=== PATIENT | female | born 1970 | race Caucasian/White ===

== ENCOUNTER 2018-08-08 10:21 | Inpatient (IN) | payer MEDICAID ==
[~2018-08-08] VITALS: Ht 172.7 cm; Wt 75.3 kg
--- NOTE | ~2018-08-08 | PROC ---
[address] [address] PROCEDURE REPORT Name: GALILEO HAMMOND Room: [address] IN ..#: [id number] Admission: 08/08/18 Attend Phys: Cristina Desai MD Discharge: 08/11/18 Date of : 66 Report #: [id number] THIS REPORT FOR: //name// For GI report, please see the Provation report in Perceptive 7 content. By: 1003Medical Records Staff RADHA /KRISTA
[~2018-08-08 10:21] MED LIST: DOXYCYCLINE 10100 MG PO; FLEXERIL PO; IBUPROFEN 600600 M1 PO; IRON325 PO; LEXAPRO20 MG; LEXAPRO20 MG PO; MAGOX 400400 MG PO; MECLIZINE HCL25 M1 PO; NOHOMEMEDICATIONS; OMEPRAZOLE40 MG PO; PERCOCET 5-3251 EACH PO; PERMETHRIN118 ML TP; PREDNISONE 10 M10 M1 PO; PREDNISONE 20 M20 M1 PO; PROAIR HFA8.5 GM INH; ROBITUSSIN100 MG/53 PO; TESSALON PERLE100 MG PO; VENTOLIN HFA 1818 GM INH; VICODIN 5-5001 EACH PO; VIVITROL380 MG IM; ZANTAC 150MG T150 MG PO; ZPAK PO
[2018-08-08 10:30] VITALS: BP 117/92
[2018-08-08 11:08] LABS: ABSOLUTE EOSINOPHILS 0.1 thou/uL (0.0-0.7); ABSOLUTE LYMPHOCYTES 2.9 thou/uL (0.8-5.3); ABSOLUTE MONOCYTES 0.7 thou/uL (0.0-1.2); BASOPHILS 0.7 %; EOSINOPHILS 0.9 %; HEMATOCRIT 46.5 % (37.0-47.0); HEMOGLOBIN 16.1 gm/dL (12.0-15.0); LYMPHOCYTES 43.2 %; MCH 31.5 pg (26.0-34.0); MCHC 34.7 g/dL (28.0-37.0); MCV 90.8 fL (80.0-100.0); MONOCYTES 10.4 %; NUCLEATED RBCS 0 /100WBC; PLATELET COUNT* 336 thou/uL (150-400); POLYS 44.8 %; RBC 5.12 mil/uL (4.20-5.00); WBC 6.7 thou/uL (4.0-11.0)
[2018-08-08 11:15] LABS: CALCIUM 8.8 mg/dL (8.5-10.1); CREATININE 0.7 mg/dL (0.6-1.3)
[2018-08-08 11:17] LABS: POTASSIUM 2.5 mmol/L (3.5-5.1)
[2018-08-08 11:25] LABS: ALBUMIN 3.3 g/dL (3.4-5.0); TOTAL BILIRUBIN 0.4 mg/dL (<0.1-1.0); TOTAL PROTEIN 7.2 g/dL (6.4-8.2)
[2018-08-08 13:16] LABS: URINE BILIRUBIN NEGATIVE (Negative); URINE BLOOD NEGATIVE (Negative); URINE CLARITY CLEAR; URINE COLOR YELLOW; URINE GLUCOSE-RANDOM NEGATIVE (Negative); URINE KETONES NEGATIVE (Negative); URINE LEUKOCYTES-REFLEX NEGATIVE (Negative); URINE NITRITE-REFLEX NEGATIVE (Negative); URINE PROTEIN NEGATIVE (Negative); URINE UROBILINOGEN 0.2 E.U./dl (0.2-1.0)
[2018-08-08 14:12] VITALS: BP 135/115
[2018-08-08 14:42] VITALS: BP 124/77
[2018-08-08] MEDS ORDERED: SEROQUEL200 MG PO (15:01)
[2018-08-08] MEDS ORDERED: TRAZODONE HCL100 MG PO (15:02)
[2018-08-08] MEDS ORDERED: SEROQUEL 50 MG50 MG PO (15:02)
[2018-08-08] MEDS ORDERED: LEXAPRO 10 MG T10 M2 PO (15:03)
[2018-08-08 15:34] LABS: MAGNESIUM 2.4 mg/dL (1.8-2.4)
--- NOTE | 2018-08-08 15:34 | NUR ---
PATIENT ADMITTED TO 219. NO FAMILY PRESENT AT THIS TIME. PATIENT HAS PAIN, MEDICATION GIVEN. PAIN PERSISTS EVEN AFTER MEDICATION. ALL ADMISSION QUESTIONS ANSWERED, ASSESMENT CHARTED. EDUCATION GIVEN.
[2018-08-08 15:35] LABS: POTASSIUM 3.5 mmol/L (3.5-5.1)
--- NOTE | 2018-08-08 18:08 | NUR ---
PATIENT PROGRESSING WELL TOWARDS GOALS. PAIN HAS COME DOWN FROM 8 TO A 6/10 WITH MUTIPLE SCHEDULED AND PRN MEDICATION. ELECTROLYTES HAVE BEEN REPLACED AND ARE WITHIN NORMAL LIMITS. ON ELECTROLYTE PROTOCOL. INTERNATIONAL TRADE SPECIALIST IN PLACE. WILL CONTINUE TO MONITOR.
[2018-08-08 20:29] VITALS: BP 109/72
[2018-08-09] VITALS: BP 94/63
[2018-08-09 04:00] VITALS: BP 109/68
--- NOTE | 2018-08-09 05:12 | NUR ---
PT IS ABLE TO COMMUNICATE HER NEEDS TO STAFF EFFECTIVELY. CURRENT PAIN MEDICATION REGIMEN HAS BEEN ADEQUATE FOR CONTROLLING HER PAIN UP TO THIS TIME. PT STILL HAVING INTERMITTENT BILATERAL CALF CRAMPS; MEDICATION HAS BEEN ADEQUATE TO KEEP HER COMFORTABLE MOST OF THE TIME.
[2018-08-09 05:25] LABS: HEMATOCRIT 40.2 % (37.0-47.0); MCH 32.2 pg (26.0-34.0); MCHC 34.7 g/dL (28.0-37.0); MCV 92.6 fL (80.0-100.0); RBC 4.34 mil/uL (4.20-5.00); WBC 5.6 thou/uL (4.0-11.0)
[2018-08-09 06:00] LABS: CALCIUM 8.1 mg/dL (8.5-10.1); CREATININE 0.7 mg/dL (0.6-1.3); MAGNESIUM 2.1 mg/dL (1.8-2.4)
[2018-08-09 06:04] LABS: POTASSIUM 2.8 mmol/L (3.5-5.1)
[2018-08-09 08:04] VITALS: BP 83/56
--- NOTE | 2018-08-09 09:38 | NUR ---
ASSUMED CARE OF PT THIS AM AROUND 0715- MOBILE THERAPIST IN PLACE ORDERED, TRACING SR- UPON ASSESSMENT PT NOTED TO BE RESTING IN BED, EYES CLOSED- PT ARROUSABLE, BUT GROGGY- PT A&O X4- CONTINENT OF BOWEL AND BLADDER- SBA WITH TRANSFERS THIS AM FOR SAFETY R/T LOW BP OF 83/56-BP AT 0943 NOTED TO IMPROVE TO 127/70- LCTA, RESP EVEN AND UN-LABORED- VSS, O2 SAT 92% ON RA- ABDOMEN SOFT/ROUND/NON-TENDER, BS X4 QUADS- LAST BM REPORTED 08/07/18- IV NOTED TO RIGHT HAND INTACT AND SL- NICOTEIN PATCH REPLACED THIS AM TO LEFT UPPER SHOULDER- LIDOCAINE PATCH PLACED TO KATE FEET-K+ THIS AM NOTED TO BE 2.8, AND HAS CURRENTLY LUCIO REPLACED PER PROTOCOL X2 WITH 3RD DOSE TO FOLLOW- CALL LIGHT AND PERSONAL BELONGINGS WITH IN REACH-HOURLY ROUNDS IN PLACE R/T SAFETY/NEEDS- ALL NEEDS MET AT THIS TIME-WCTM
[2018-08-09 11:47] VITALS: BP 88/51
--- NOTE | 2018-08-09 13:38 | NUR ---
Nutrition: Consult received for "difficulty eating." Per RN, pt has had no N/V. She has had abd pain INSIDE SALES ACCOUNT MANAGER. K+ 2.8, alb 3.3. Pt was sound asleep at 13:[address] noticed her lunch tray was untouched. Per [facility], pt used to weigh 180#. Today's wt is recorded as 159#. Unable to obtain wt hx, as pt is sleeping. RD to follow up on wt hx, po intake 08/11/18.
--- NOTE | 2018-08-09 14:03 | NUR ---
Pt is A&O. Resides at home with her boyfriend and son. Independent with ADLs. No DME. No hx of HH. Pt reports hx of skilled in [place]. Pt requested assistance with disability, CM provided Pt with info from [employer] site and informed that she will need to either apply online, in person or via phone. Following.
[2018-08-09 15:44] VITALS: BP 81/44
--- NOTE | 2018-08-09 16:23 | NUR ---
PT FAUSTINO RESTING IN BED, FAMILY AT SIDE VISITING- CORROSION ENGINEER IN PLACE ORDERED, TRACING SR- IV TO LEFT HAND INTACT, IVF STARTED THIS SHIFT AND INFUSING PRESCIBED- BP NOTED TO BE LOW AGAIN AT 1130 OF 88/51, PT CONTINUES TO BE GROGGY AND SLEEPING MOST SHIFT- PT STATES THAT SHE HAS NOT SLEPT WELL FOR LAST FEW DAYS- BP IMPROVED AT 1435 AND NOTED TO BE 115/67, PRN HYDROCODONE GIVEN PER PT REQUEST AT 1438- BP THEN AT 1600 REPORTED TO BE LOW AT 81/44- AWARE OF BP'S- ORDERS NOTED FOR SCHEDULED SERAQUIL TO BE DECREASED THIS SHIFT PER - K+ REPLACED THIS SHIFT PERPROTOCOL AND IVF PRESCIBED- REDRAW AT 1545 NOTED TO BE 4.7- GI CONSULT INITIATED AND PT SEEN THIS SHIFT WITH ORDERS NOTED FOR CLEAR LIQUID DIET, WITH NPO AT MIDNIGHT AND PLANS FOR EGD AND COLONOSCOPY IN AM WITH GET TO FOLLOW- HUBER STARTED THIS SHIFT SCHEDULED AT 1541- PT MAKES NEEDS KNOWN- HOURLY ROUNDS IN PLACE R/T SAFETY/NEEDS- ALL NEEDS MET AT THIS TIME-WCTM
[2018-08-09 19:25] VITALS: BP 108/63
[2018-08-10] VITALS (7 sets, daily range): BP systolic 98–125; BP diastolic 57–72
--- NOTE | 2018-08-10 04:08 | NUR ---
PT AAOX4, RESP REG AND UNALBORED SKIN W/D NO ACUTE DISTRESS NOTED. PT STATED SHE HAS CONSTANT PAIN IN HER LEGS FROM THIGHS DOWN MOST OF THE TIME. MEDICATION GIVEN ORDERED THIS SHIFT. VSS AND NO ACUTE CHANGES DURING SHIFT. PT DRANK MOST OF HER BOWEL PREP, STILL NOTED TO BE HAVING CLOUDY LIQUID STOOLS. TELEMETRY PACK INTACT WITH [employer]ARMS SET. WILL CONTINUE TO MONITOR.
[2018-08-10 05:29] LABS: HEMATOCRIT 36.6 % (37.0-47.0); HEMOGLOBIN 12.6 gm/dL (12.0-15.0); MCH 32.4 pg (26.0-34.0); MCHC 34.4 g/dL (28.0-37.0); MCV 94.4 fL (80.0-100.0); MPV 8.2 fl. (7.2-11.1); RBC 3.87 mil/uL (4.20-5.00); RDW-CV 14.4 % (10.5-14.5); WBC 4.1 thou/uL (4.0-11.0)
[2018-08-10 05:57] LABS: CALCIUM 8.2 mg/dL (8.5-10.1); CREATININE 0.6 mg/dL (0.6-1.3); MAGNESIUM 1.7 mg/dL (1.8-2.4); POTASSIUM 4.1 mmol/L (3.5-5.1)
--- NOTE | 2018-08-10 08:33 | NUR ---
ASSUMED CARE OF PT THIS AM AROUND 0715- OFFICE MESSENGER HELPER IN PLACE ORDERED, TRACING SR- UPON ASSESSMENT PT NOTED TO BE RESTING IN BED- PT A&O X4- CONTINENT OF BOWEL AND BLADDER- UP AD-HUSSAIN IN ROOM, STEADY GAIT NOTED- LCTA, DIMINISHED IN BASES- VSS, O2 SAT 94% ON RA- ABDOMEN SOFT/ROUND/NON-TENDER, BS X4 QUADS- BOWEL PREP COMPLETED WITH ENEMA REPORTED TO HAVE BEEN GIVEN ON PRIOR SHIFT- PT REPORTS THIS AM TO BE CLEAR AND PREPED FOR EGD/COLONOSCOPY-IV NOTED TO LEFT HAND INTACT AND SL- PT REFUSED IVF THIS AM- PRN HYDROCODONE GIVEN THIS AM PER PT REQUEST AT 0807 FOR C/O LEG PAIN- LIDODERM PATCH CUT AND PLACED TO KATE BACK OF LEGS REQUESTED THIS AM- CALL LIGHT AND PERSONAL BELONGINGS WITH IN REACH- PT MAKES NEEDS KNOWN- ALL NEEDS MET AT THIS TIME-WCTM
[2018-08-10 16:29] LABS: AMP/METHAMP POSITIVE (Negative); BARBITURATES Negative (Negative); BENZODIAZEPINES Negative (Negative); COCAINE Negative (Negative); METHADONE Negative (Negative); OPIATES POSITIVE (Negative); PCP Negative (Negative); THC POSITIVE (Negative)
--- NOTE | 2018-08-10 17:24 | NUR ---
PT CURRENLTY RESTING IN BED, EYES CLOSED- IV TO RIGHT HAND REPLACED IN PACU TO 20 GAUGE IN LEFT HAND INTACT WITH MG IV CURRENLTY BEING REPLACED-MG LAB DRAW TO FOLLOW AT 1849- URINE COLLECTED AND SENT FOR DRUG SCREEN ORDERED, RESULTS NOTED IN uma information technology FOR VIEWING- TRAMADOL SCHEDULED WITH PRN HYDROCODONE PER PT REQUEST FOR PAIN- LIDODERM PATCH NOTED TO FALL OFF AND WASTED THIS SHIFT WITH NEW ONE APPLIED- PT MAKES NEEDS KNOW- ALL NEEDS MET AT THIS TIME-HETAL
[2018-08-11] VITALS: BP 105/61
[2018-08-11 04:00] VITALS: BP 126/78
--- NOTE | 2018-08-11 04:23 | NUR ---
ASSUMED PT CARE REPORT RECEIVED FROM NURSE. PT IS ALERT AWAKE ORIENTED X4 COMPLAINS OF PAIN IN HER KATE LOWER EXTREMITIES. PAIN MED GIVEN SCHEDULED AND PRN. TOPICAL CREAM WAS ADM ALSO TO RELIEVE PAIN PER PT REQUEST. PT IS NPO AFTER MIDNIGHT FOR GASTRIC EMPTYING PROCEDURE TODAY. SHE IS SINUS RYTHM WITH BBB ON THE MONITOR. VITAL SIGNS WITHIN NORMAL LIMIT.
[2018-08-11 07:49] VITALS: BP 127/91
--- NOTE | 2018-08-11 09:17 | NUR ---
ASSUMED CARE OF PT THIS AM AROUND 0715- BILINGUAL KINDERGARTEN TEACHER IN PLACE ORDERED, TRACING SR- UPON ASSESSMENT PT NOTED TO BE RESTING IN BED- PT A&O X4- CONTINENT OF BOWEL AND BLADDER- UP AD-HUSSAIN IN ROOM, STEADY GAIT NOTED- LCTA, RESP EVEN AND UN-LABORED- VSS, O2 SAT 98% ON RA- ABDOMEN SOFT/ROUND/NON-TENDER, BS X 4 QUADS- LAST BM NOTED 08/10/18- IV NOTED TO LEFT HAND INTACT AND SL- PT HAST STARTED GET TEST THIS AM AND IS CURRENTLY STILL BEING EVALUATED, NPO STATUS AT THIS TIME FOR TEST- PT RATES PAIN 08/17 TO BLE, REPORTS MEDICATIONS TO NOT BE VERY EFECTIVE- PRN HYDROCODONE 2 TABS GIVEN THIS AM REQUESTED- TRAMADOL SCHEDULED- CALL LIGHT AND PERSONAL BELONGINGS WITH IN REACH- PT MAKES NEEDS KNOWN- ALL NEEDS MET AT THIS TIME-WCTM
[2018-08-11] MEDS ORDERED: PROTONIX40 M1 PO (11:22)
[2018-08-11] MEDS ORDERED: CYCLOBENZAPRINE5 MG PO (11:23)
[2018-08-11 11:25] VITALS: BP 127/91
[2018-08-11 11:40] VITALS: BP 120/82
--- NOTE | 2018-08-11 13:07 | NUR ---
PT NOTED TO HAVE COMPLETED GET TEST THIS SHIFT PRESCRIBED- OKAY RECIEVIED PER TO D/C HOME- AND OKAY RECIEVED PER GI TO D/C WITH SCRIPTS FOR PROTONIX 40 MG BID WITH F/U IN 2 WEEKS- RECOMMENDATION ALSO NOTED FOR NEPHROLOGY F/U R/T PT CONCERNS FOR K+- D/C TEACHING/EDUCATION GIVEN TO PT PRIOR TO D/C WITH ALL QUESTIONS AND CONCERNS ADDRESSED- IV TO LEFT HAND D/C'D ALONG WITH SALES SERVICE ROUTE MANAGER- WRITTEN EDUCATION ALONG WITH SCRIPTS PROVIDED TO PT PRIOR TO D/C- WRITTEN EDUCATION GIVEN ON K+ FOOD TO EAT TO MAINTAIN LEVELS- BELONGINGS PACKED AND ACCOUNTED FOR PER PT- PT CURRENLTY DRESSED UP WAITING IN ROOM FOR TAXI TO ARRIVE TO TRANSPORT HOME AT TIME OF D/C
--- NOTE | 2018-08-11 14:29 | NUR ---
PROVIEDED CAB VOUCHER PRE NURSE'S REQUEST. NO OTHER DC NEEDS
--- NOTE | 2018-08-17 11:08 | PATH ---
[address] [address] PATHOLOGY RPT PROCEDURE Name: GALILEO HAMMOND Room: [address] IN R.#: [id number] Admission: 08/08/18 Date of : 66 Discharge: 08/11/18 Report #: [id number] Path Case #: [id number] [facility] Accession Number: [id number] . 01 Material submitted: . SMALL BOWEL BIOPSY . 01 Clinical history: . None provided . 02 Diagnosis: Small bowel biopsy: - Focal superficial fresh hemorrhage in otherwise normal duodenal / small intestinal mucosa. . (CHRISTEN:mml; 08/11/18) QLM/08/11/2018 . 02 Electronically signed: . Gregorio Medina MD, Pathologist NPI- [id number] . 01 Gross description: . Received in formalin labeled "Astrid, Galileo, small bowel biopsy, rule out celiac," are 3 segments of yu soft tissue measuring 0.9 x 0.7 x 0.3 cm in aggregate dimensions and ranging from 0.3 to 0.5 cm in maximum dimension. The specimen is submitted entirely in cassette A1. (TSD; 08/10/2018) TOB/TOB . 02 Pathologist provided ICD-10: R10.9 . 02 CPT . 152064 Specimen Comment: A courtesy copy of this report has been sent to Specimen Comment: [phone], , . Specimen Comment: Report sent to ,DR PETER / DR DAVILA Specimen Comment: A duplicate report has been generated due to demographic updates. Performed at: 01 [facility] [address], [place], [place] [id number] MD Juan Francisco Mejia MD Phone: [phone] Performed at: [address] [facility] [address] [address], [place], [place] [id number] MD Gregorio Medina MD Phone: [phone]
--- NOTE | 2018-08-22 11:23 | CON ---
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 The GI service has been consulted because additionally the patient reports difficulty swallowing, nausea and vomiting. The patient reports that she has had long-standing reflux disease and underwent LINX procedure in 11/2016. Following the procedure, she has had progressively worsening intermittent dysphagia to solids. The patient also reports nausea and vomiting and reports that her emesis usually contain food consumed several days prior. She reports that she was seen at Dr. Toledo's office and underwent a barium esophagogram, which was apparently normal. The patient reports her last EGD was performed prior to surgery and does not recollect having a gastric emptying test performed. The patient also reports unintentional weight loss of 30 pounds since April of this year. She denies any hematochezia, hematemesis or melena. PAST MEDICAL HISTORY: The patient reports history of progressively worsening neuropathy of both her legs and now the patient reports that she has numbness in the front of her abdomen. PAST SURGICAL HISTORY: The patient had tonsillectomy in the remote past, LINX procedure in 11/2016. FAMILY HISTORY: No pertinent family history. SOCIAL HISTORY: The patient is a smoker and has been smoking a pack and a half for the last 30 years. Denies alcohol or significant recreational drug use. REVIEW OF SYSTEMS: A comprehensive 10-point review of systems is negative, except for what is mentioned here. PHYSICAL EXAMINATION: VITAL SIGNS: Temperature 36.8, pulse rate 97, respirations 19 and blood pressure 88/51. GENERAL: Alert, awake, oriented x 3. HEENT: Mucous membranes are moist. There is no congestion. LUNGS: Clear to auscultation bilaterally. CARDIOVASCULAR EXAMINATION: Rate and rhythm regular, S1, S2 present. ABDOMEN: Soft. There is no distention. No guard[place] [address] CONSULTATION Name: GALILEO HAMMOND Room: [address]#: [id number] Admission: 08/08/18 Attend Phys: Cristina Desai MD Discharge: 08/11/18 Date of : 66 Report #: [id number] organomegaly. EXTREMITIES: Warm, well perfused. There is no significant edema. SKIN: Warm and dry. LABORATORY DATA: Hemoglobin 14.0, hematocrit 40.2, platelet count 220,000 and WBC count 5.6. Sodium 129, potassium 2.8, chloride 91, bicarbonate 34, BUN 7 and creatinine 0.7. ASSESSMENT AND PLAN: This is a very pleasant 48-year-old female with past medical history significant for gastroesophageal reflux disease, status post LINX procedure, who is presenting with abdominal pain, nausea, vomiting and difficulty swallowing. The patient also noted to have 50-pound weight loss. EGD and colonoscopy both were performed 2 years back. We will proceed with EGD and colonoscopy tomorrow and a gastric emptying test following that. Further recommendations will be based on that. <ELECTRONICALLY SIGNED> By: Merrill Mcgrath MD 08/22/18 1123 1450 0128Merrill Mcgrath MD /nt
== END 2018-08-11 14:57 | disposition home or self-care (01) | DRG 392 ==
LOC: M.ERS 10:21 → M.2W 12:34 → M.TBA-ER 12:34 → M.2W 14:30
PROVIDERS: Internal Medicine; Nurse Practitioner Family; ADMIT Internal Medicine
PROC: 0D758ZZ Dilation of Esophagus, Via Natural or Artificial Opening Endoscopic (ICD-10-PCS; principal; 2018-08-10)
PROC: 0DJD8ZZ Inspection of Lower Intestinal Tract, Via Natural or Artificial Opening Endoscopic (ICD-10-PCS; principal; 2018-08-10)
PROC: 0DB88ZX Excision of Small Intestine, Via Natural or Artificial Opening Endoscopic, Diagnostic (ICD-10-PCS; principal; 2018-08-10)
DX: K21.0 Gastro-esophageal reflux disease with esophagitis (principal); K31.84 Gastroparesis; G89.29 Other chronic pain; R10.9 Unspecified abdominal pain; E87.6 Hypokalemia; E83.42 Hypomagnesemia; F32.9 Major depressive disorder, single episode, unspecified; R13.10 Dysphagia, unspecified; R63.4 Abnormal weight loss; Z68.25 Body mass index [BMI] 25.0-25.9, adult; Z88.2 Allergy status to sulfonamides; Z87.891 Personal history of nicotine dependence; Z79.899 Other long term (current) drug therapy; R12 Heartburn

== ENCOUNTER 2018-08-16 02:22 | Emergency (ER) | payer MEDICAID ==
[~2018-08-16] VITALS: Ht 172.7 cm; Wt 68.0 kg
[~2018-08-16 02:22] MED LIST changes: +CYCLOBENZAPRINE5 MG PO; +LEXAPRO 10 MG T10 M2 PO; +PROTONIX40 M1 PO; +SEROQUEL 50 MG50 MG PO; +SEROQUEL200 MG PO; +TRAZODONE HCL100 MG PO
[2018-08-16 03:26] LABS: ABSOLUTE BASOPHILS 0.1 thou/uL (0.0-0.2); ABSOLUTE EOSINOPHILS 0.1 thou/uL (0.0-0.7); ABSOLUTE LYMPHOCYTES 2.2 thou/uL (0.8-5.3); ABSOLUTE MONOCYTES 0.8 thou/uL (0.0-1.2); ABSOLUTE NEUTROPHILS 2.8 thou/uL (1.6-8.1); BASOPHILS 1.2 %; EOSINOPHILS 2.3 %; HEMATOCRIT 39.1 % (37.0-47.0); HEMOGLOBIN 13.2 gm/dL (12.0-15.0); LYMPHOCYTES 36.7 %; MCH 31.6 pg (26.0-34.0); MCHC 33.8 g/dL (28.0-37.0); MCV 93.4 fL (80.0-100.0); MONOCYTES 13.8 %; MPV 7.9 fl. (7.2-11.1); NUCLEATED RBCS 0 /100WBC; PLATELET COUNT* 323 thou/uL (150-400); RBC 4.19 mil/uL (4.20-5.00); WBC 6.1 thou/uL (4.0-11.0)
[2018-08-16 03:33] LABS: CALCIUM 8.4 mg/dL (8.5-10.1); CREATININE 0.7 mg/dL (0.6-1.3)
[2018-08-16 03:35] LABS: POTASSIUM 2.9 mmol/L (3.5-5.1)
[2018-08-16 03:37] LABS: ALBUMIN 2.6 g/dL (3.4-5.0); MAGNESIUM 1.5 mg/dL (1.8-2.4); TOTAL BILIRUBIN 0.3 mg/dL (<0.1-1.0); TOTAL PROTEIN 5.8 g/dL (6.4-8.2)
[2018-08-16] MEDS ORDERED: HYDROCODON-ACE1 EAC7 PO (03:50)
[2018-08-16 04:06] VITALS: BP 124/79
== END 2018-08-16 04:07 | disposition home or self-care (01) ==
LOC: M.ERS 02:22
PROVIDERS: Emergency Medicine
DX: E87.6 Hypokalemia (principal); R25.2 Cramp and spasm; F17.210 Nicotine dependence, cigarettes, uncomplicated; Z88.0 Allergy status to penicillin; Z86.2 Personal history of diseases of the blood and blood-forming organs and certain disorders involving the immune mechanism

== ENCOUNTER 2018-08-24 03:34 | Emergency (ER) | payer MEDICAID ==
[~2018-08-24] VITALS: Ht 172.7 cm; Wt 67.1 kg
[~2018-08-24 03:34] MED LIST changes: +HYDROCODON-ACE1 EAC7 PO
[2018-08-24 04:25] LABS: ABSOLUTE EOSINOPHILS 0.2 thou/uL (0.0-0.7); ABSOLUTE LYMPHOCYTES 2.4 thou/uL (0.8-5.3); ABSOLUTE MONOCYTES 0.7 thou/uL (0.0-1.2); ABSOLUTE NEUTROPHILS 4.7 thou/uL (1.6-8.1); BASOPHILS 0.6 %; EOSINOPHILS 2.7 %; HEMATOCRIT 44.9 % (37.0-47.0); HEMOGLOBIN 15.3 gm/dL (12.0-15.0); LYMPHOCYTES 29.7 %; MCH 32.2 pg (26.0-34.0); MCHC 34.1 g/dL (28.0-37.0); MCV 94.6 fL (80.0-100.0); MONOCYTES 8.6 %; MPV 7.9 fl. (7.2-11.1); NUCLEATED RBCS 0 /100WBC; PLATELET COUNT* 346 thou/uL (150-400); POLYS 58.4 %; RBC 4.75 mil/uL (4.20-5.00); RDW-CV 14.3 % (10.5-14.5)
[2018-08-24 04:31] LABS: CALCIUM 8.8 mg/dL (8.5-10.1); CREATININE 0.7 mg/dL (0.6-1.3); POTASSIUM 3.4 mmol/L (3.5-5.1)
[2018-08-24 04:35] LABS: ALBUMIN 2.8 g/dL (3.4-5.0); MAGNESIUM 1.6 mg/dL (1.8-2.4); TOTAL BILIRUBIN 0.6 mg/dL (<0.1-1.0); TOTAL PROTEIN 6.6 g/dL (6.4-8.2)
[2018-08-24] MEDS ORDERED: REGLAN 10 MG TA10 MG PO (05:20)
[2018-08-24] MEDS ORDERED: NORCO 7.5-3251 EACH PO (05:20)
[2018-08-24] MEDS ORDERED: MAGOX 400400 MG PO (06:08)
[2018-08-24 06:41] VITALS: BP 117/81
== END 2018-08-24 06:46 | disposition home or self-care (01) ==
LOC: M.ERS 03:34
PROVIDERS: Emergency Medicine
DX: K31.84 Gastroparesis (principal); F17.210 Nicotine dependence, cigarettes, uncomplicated; Z88.2 Allergy status to sulfonamides

== ENCOUNTER 2018-11-20 20:16 | Emergency (ER) | payer MEDICAID ==
[~2018-11-20] VITALS: Ht 172.7 cm; Wt 63.5 kg
[~2018-11-20 20:16] MED LIST changes: +NORCO 7.5-3251 EACH PO; +REGLAN 10 MG TA10 MG PO
[2018-11-20 20:17] VITALS: BP 116/84
== END 2018-11-20 20:30 | disposition left against medical advice (07) ==
LOC: M.ERS 20:16
DX: M53.3 Sacrococcygeal disorders, not elsewhere classified (principal); D64.9 Anemia, unspecified; Z88.2 Allergy status to sulfonamides; F17.210 Nicotine dependence, cigarettes, uncomplicated; Y04.2XXA Assault by strike against or bumped into by another person, initial encounter; Y93.89 Activity, other specified; Y92.89 Other specified places as the place of occurrence of the external cause; Y99.8 Other external cause status

== ENCOUNTER 2019-06-27 15:16 | Emergency (ER) | payer MEDICAID ==
[~2019-06-27] VITALS: Ht 172.7 cm; Wt 49.9 kg
[~2019-06-27 15:16] MED LIST changes: +BENTYL 20 MG TA20 M1; +DIAZEPAM 5 MG5 M1 PO; +GABAPENTIN 100100 MG; +LATUDA20 MG; +MOBIC15 MG; +PROTONIX40 M1; +QUETIAPINE FUM100 MG PO
[2019-06-27 16:29] LABS: APTT 24.4 Seconds (25.0-31.3); PROTIME 10.5 Seconds (9.20-11.50)
[2019-06-27 16:48] LABS: ABSOLUTE EOSINOPHILS 0.1 thou/uL (0.0-0.7); ABSOLUTE LYMPHOCYTES 1.7 thou/uL (0.8-5.3); ABSOLUTE MONOCYTES 0.4 thou/uL (0.0-1.2); ABSOLUTE NEUTROPHILS 2.4 thou/uL (1.6-8.1); BASOPHILS 0.8 %; EOSINOPHILS 1.4 %; HEMATOCRIT 40.4 % (37.0-47.0); HEMOGLOBIN 13.6 gm/dL (12.0-15.0); MCH 31.6 pg (26.0-34.0); MCHC 33.8 g/dL (28.0-37.0); MCV 93.4 fL (80.0-100.0); MONOCYTES 7.9 %; MPV 8.9 fl. (7.2-11.1); NUCLEATED RBCS 0 /100WBC; PLATELET COUNT* 280 thou/uL (150-400); POLYS 52.9 %; RBC 4.32 mil/uL (4.20-5.00); RDW-CV 14.3 % (10.5-14.5); WBC 4.5 thou/uL (4.0-11.0)
[2019-06-27 16:51] LABS: CALCIUM 8.5 mg/dL (8.5-10.1); CREATININE 0.7 mg/dL (0.6-1.3)
[2019-06-27 16:56] LABS: ALBUMIN 2.8 g/dL (3.4-5.0); TOTAL BILIRUBIN 0.4 mg/dL (<0.1-1.0); TOTAL PROTEIN 6.7 g/dL (6.4-8.2)
[2019-06-27] MEDS ORDERED: ONDANSETRON HCL4 M2 PO (17:04)
[2019-06-27 17:30] VITALS: BP 104/42
--- NOTE | 2019-06-28 11:03 | EKG ---
[place] [address] ELECTROCARDIOGRAM REPORT Name: GALILEO HAMMOND Room: [facility]#: [id number] Admission: 06/27/19 Attend Phys: Discharge: 06/27/19 Date of : 66 Report #: [id number] THIS REPORT FOR: //name// [facility] ED Test Date: 2019-06-27 Test Time: 15:32:56 Pat Name: GALILEO HAMMOND Department: Room: Gender: F Corporate Driver: NIKI : 1970 Requested By: Mary Aranda Order Number: [id number] MD: Fred Reina Measurements Intervals [place] Rate: 94 P: 71 SC: 108 QRS: -43 QRSD: 105 T: 56 QT: 499 QTc: 625 Interpretive Statements Sinus rhythm Short SC interval Left axis deviation Probable septal infarct, old Borderline ST depression, anterolateral leads Prolonged QT interval Compared to ECG 12/26/2018 21:12:15 Short SC interval now present Sinus arrhythmia no longer present Electronically Signed On 06-28-2019 11:03:21 CDT by Fred Reina [email or web address] <ELECTRONICALLY SIGNED> By: Fred Reina MD, [facility] 06/28/19 1103 1532 1532 Fred Reina MD, [facility] /EPI
== END 2019-06-27 17:32 | disposition left against medical advice (07) ==
LOC: M.ERS 15:16
PROVIDERS: Nurse Practitioner Family
DX: S00.83XA Contusion of other part of head, initial encounter (principal); I95.1 Orthostatic hypotension; E87.6 Hypokalemia; F10.129 Alcohol abuse with intoxication, unspecified; F17.210 Nicotine dependence, cigarettes, uncomplicated; Z88.2 Allergy status to sulfonamides; Z90.89 Acquired absence of other organs; Z86.2 Personal history of diseases of the blood and blood-forming organs and certain disorders involving the immune mechanism; W22.8XXA Striking against or struck by other objects, initial encounter; Y92.89 Other specified places as the place of occurrence of the external cause; Y90.0 Blood alcohol level of less than 20 mg/100 ml; Y93.89 Activity, other specified; Y99.8 Other external cause status

== ENCOUNTER 2020-01-25 21:47 | Emergency (ER) | payer MEDICAID ==
[~2020-01-25] VITALS: Ht 172.7 cm; Wt 57.1 kg
[~2020-01-25 21:47] MED LIST changes: +ONDANSETRON HCL4 M2 PO
[2020-01-25] MEDS ORDERED: KLOR-CON M1010 MEQ PO (21:59)
[2020-01-25] MEDS ORDERED: IRON325 M1 PO (22:00)
[2020-01-26] MEDS ORDERED: HYDROCODON-ACE1 EAC8 PO (00:06)
[2020-01-26] MEDS ORDERED: CHANTIX1 EACH PO (00:59)
[2020-01-26] MEDS ORDERED: CHANTIX0.5 MG PO ×2 (00:59→01:00)
[2020-01-26 01:05] VITALS: BP 112/64
== END 2020-01-26 01:05 | disposition home or self-care (01) ==
LOC: M.ERS 21:47
DX: S92.212A Displaced fracture of cuboid bone of left foot, initial encounter for closed fracture (principal); F17.210 Nicotine dependence, cigarettes, uncomplicated; Z90.89 Acquired absence of other organs; Z86.2 Personal history of diseases of the blood and blood-forming organs and certain disorders involving the immune mechanism; Z88.2 Allergy status to sulfonamides; W01.0XXA Fall on same level from slipping, tripping and stumbling without subsequent striking against object, initial encounter; Y93.89 Activity, other specified; Y92.89 Other specified places as the place of occurrence of the external cause; Y99.8 Other external cause status

== ENCOUNTER 2020-02-17 03:13 | Emergency (ER) | payer MEDICAID ==
[~2020-02-17] VITALS: Ht 170.2 cm; Wt 59.9 kg
[~2020-02-17 03:13] MED LIST changes: +CHANTIX0.5 MG PO; +CHANTIX1 EACH PO; +HYDROCODON-ACE1 EAC8 PO; +IRON325 M1 PO; +KLOR-CON M1010 MEQ PO
[2020-02-17] MEDS ORDERED: CLONAZEPAM 0.50.5 M1 PO (03:26)
[2020-02-17] MEDS ORDERED: NORCO 5-325 TA1 EAC1 PO (03:38)
[2020-02-17 04:07] VITALS: BP 101/56
== END 2020-02-17 04:07 | disposition home or self-care (01) ==
LOC: M.ERS 03:13
DX: S92.212A Displaced fracture of cuboid bone of left foot, initial encounter for closed fracture (principal); F17.210 Nicotine dependence, cigarettes, uncomplicated; Z90.89 Acquired absence of other organs; Z86.2 Personal history of diseases of the blood and blood-forming organs and certain disorders involving the immune mechanism; Z88.2 Allergy status to sulfonamides; X50.1XXA Overexertion from prolonged static or awkward postures, initial encounter; Y93.89 Activity, other specified; Y92.89 Other specified places as the place of occurrence of the external cause; Y99.8 Other external cause status

== ENCOUNTER 2020-11-24 12:51 | Emergency (ER) | payer MEDICAID ==
[~2020-11-24] VITALS: Ht 172.7 cm; Wt 49.0 kg
[~2020-11-24 12:51] MED LIST changes: +CLONAZEPAM 0.50.5 M1 PO; +NORCO 5-325 TA1 EAC1 PO
[2020-11-24 14:05] VITALS: BP 125/70
== END 2020-11-24 14:05 | disposition home or self-care (01) ==
LOC: M.ERS 12:51
DX: S46.911A Strain of unspecified muscle, fascia and tendon at shoulder and upper arm level, right arm, initial encounter (principal); S50.11XA Contusion of right forearm, initial encounter; F17.210 Nicotine dependence, cigarettes, uncomplicated; Z86.2 Personal history of diseases of the blood and blood-forming organs and certain disorders involving the immune mechanism; Z90.89 Acquired absence of other organs; Z79.899 Other long term (current) drug therapy; Z88.2 Allergy status to sulfonamides; W22.8XXA Striking against or struck by other objects, initial encounter; Y93.89 Activity, other specified; Y92.89 Other specified places as the place of occurrence of the external cause; Y99.8 Other external cause status

== ENCOUNTER 2021-02-07 10:56 | Inpatient (IN) | payer MEDICAID ==
[~2021-02-07] VITALS: Ht 170.2 cm
[2021-02-07 11:03] VITALS: BP 99/51
[2021-02-07] MEDS ORDERED: LEXAPRO 10 MG T10 M1 PO (11:09)
[2021-02-07 11:25] LABS: HEMATOCRIT 34.2 % (37.0-47.0); HEMOGLOBIN 11.5 gm/dL (12.0-15.0); MCHC 33.6 g/dL (28.0-37.0); MCV 89.3 fL (80.0-100.0); MPV 7.5 fl. (7.2-11.1); NUCLEATED RBCS 0 /100WBC; PLATELET COUNT* 202 thou/uL (150-400); RBC 3.83 mil/uL (4.20-5.00); RDW-CV 13.1 % (10.5-14.5)
[2021-02-07 11:33] LABS: CALCIUM 8.1 mg/dL (8.5-10.1); CREATININE 0.6 mg/dL (0.6-1.3)
[2021-02-07 11:38] LABS: ALBUMIN 2.4 g/dL (3.4-5.0); TOTAL BILIRUBIN 0.4 mg/dL (<0.1-1.0); TOTAL PROTEIN 5.3 g/dL (6.4-8.2)
[2021-02-07 12:03] LABS: ACETAMINOPHEN < 2 ug/mL (10-30); SALICYLATE < 2.8 mg/dL (2.8-20.0)
[2021-02-07 12:05] LABS: ALCOHOL < 10 mg/dL (<10)
[2021-02-07 12:09] LABS: ABSOLUTE EOSINOPHILS 0.2 thou/uL (0.0-0.7); ABSOLUTE LYMPHOCYTES 1.3 thou/uL (0.8-5.3); ABSOLUTE MONOCYTES 0.1 thou/uL (0.0-1.2); ABSOLUTE NEUTROPHILS 2.4 thou/uL (1.6-8.1); HYPOCHROMASIA Occasional; PLATELET ESTIMATE ADEQUATE
[2021-02-07 13:47] LABS: URINE BILIRUBIN NEGATIVE (Negative); URINE BLOOD NEGATIVE (Negative); URINE CLARITY CLEAR; URINE COLOR YELLOW; URINE GLUCOSE-RANDOM NEGATIVE (Negative); URINE KETONES NEGATIVE (Negative); URINE LEUKOCYTES-REFLEX NEGATIVE (Negative); URINE NITRITE-REFLEX NEGATIVE (Negative); URINE PROTEIN NEGATIVE (Negative); URINE UROBILINOGEN 0.2 E.U./dl (0.2-1.0)
[2021-02-07 13:55] LABS: AMP/METHAMP POSITIVE (Negative); BARBITURATES Negative (Negative); BENZODIAZEPINES Negative (Negative); COCAINE Negative (Negative); METHADONE Negative (Negative); OPIATES Negative (Negative); PCP Negative (Negative); THC POSITIVE (Negative)
--- NOTE | 2021-02-07 14:54 | EKG ---
[place] [address] ELECTROCARDIOGRAM REPORT Name: GALILEO HAMMOND Room: [place] [address] ADM IN R.#: [id number] Admission: 02/07/21 Attend Phys: Porfirio Almanzar, Discharge: Date of : 66 Date of Service: 02/07/21 1101 Report #: [id number] THIS REPORT FOR: //name// [facility] ED Test Date: 2021-02-07 Test Time: 11:01:39 Pat Name: GALILEO HAMMOND Department: Room: [facility] Gender: F Medical Record Librarian: PAULIE : 1970 Requested By: Chalino Camacho Order Number: [id number] MD: Fred Reina Measurements Intervals [place] Rate: 82 P: 76 [place]: 144 QRS: -36 QRSD: 110 T: 42 QT: 429 QTc: 501 Interpretive Statements Sinus rhythm Left axis deviation Low voltage, extremity and precordial leads Borderline prolonged QT interval Compared to ECG 06/27/2019 15:32:56 Low QRS voltage now present Short [place] interval no longer present Electronically Signed On 02-07-2021 14:54:00 CDT by Ferd Reina [email or web address] <ELECTRONICALLY SIGNED> By: Fred Reina MD, [facility] 02/07/21 1454 1101 1101 Fred Reina MD, [facility] /EPI
[2021-02-07 15:57] VITALS: BP 110/74
[2021-02-07 16:15] VITALS: BP 96/65
[2021-02-07 20:00] VITALS: BP 94/60
[2021-02-08 00:11] VITALS: BP 110/68
[2021-02-08 04:56] VITALS: BP 101/65
[2021-02-08 09:30] VITALS: BP 99/65
[2021-02-08 11:56] VITALS: BP 92/61
[2021-02-08 14:03] LABS: POTASSIUM 2.7 mmol/L (3.5-5.1)
[2021-02-08 20:30] VITALS: BP 89/54
[2021-02-09 00:23] VITALS: BP 101/60
[2021-02-09 03:47] LABS: HEMATOCRIT 34.1 % (37.0-47.0); HEMOGLOBIN 11.6 gm/dL (12.0-15.0); MCH 30.4 pg (26.0-34.0); MCHC 34.1 g/dL (28.0-37.0); MCV 89.1 fL (80.0-100.0); MPV 7.7 fl. (7.2-11.1); RBC 3.83 mil/uL (4.20-5.00); RDW-CV 13.3 % (10.5-14.5); WBC 5.1 thou/uL (4.0-11.0)
[2021-02-09 04:14] LABS: CALCIUM 7.8 mg/dL (8.5-10.1); CREATININE 0.6 mg/dL (0.6-1.3); POTASSIUM 3.9 mmol/L (3.5-5.1)
[2021-02-09 05:33] VITALS: BP 103/70
[2021-02-09 08:14] VITALS: BP 95/56
[2021-02-09 10:26] VITALS: BP 95/56
== END 2021-02-09 12:20 | disposition home or self-care (01) | DRG 917 ==
LOC: M.ERS 10:56 → M.TBA-ER 12:23 → M.2W 16:09
PROVIDERS: Emergency Medicine Emergency Medical Services; Family Medicine; ADMIT Internal Medicine; ATTEND Internal Medicine
DX: T50.991A Poisoning by other drugs, medicaments and biological substances, accidental (unintentional), initial encounter (principal); G92 Toxic encephalopathy; E87.6 Hypokalemia; F12.10 Cannabis abuse, uncomplicated; I95.2 Hypotension due to drugs; F10.20 Alcohol dependence, uncomplicated; F41.1 Generalized anxiety disorder; F17.210 Nicotine dependence, cigarettes, uncomplicated; Y90.9 Presence of alcohol in blood, level not specified; K21.9 Gastro-esophageal reflux disease without esophagitis; F32.9 Major depressive disorder, single episode, unspecified; G47.00 Insomnia, unspecified; Z20.822 Contact with and (suspected) exposure to COVID-19; Y92.89 Other specified places as the place of occurrence of the external cause; Z88.2 Allergy status to sulfonamides; Z79.899 Other long term (current) drug therapy

== ENCOUNTER 2021-08-12 12:51 | Emergency (ER) | payer MEDICAID ==
[~2021-08-12] VITALS: Ht 172.7 cm; Wt 46.1 kg
[~2021-08-12 12:51] MED LIST changes: +LEXAPRO 10 MG T10 M1 PO
[2021-08-12] MEDS ORDERED: ZOFRAN ODT4 MG PO (13:53)
[2021-08-12 14:13] VITALS: BP 125/67
== END 2021-08-12 14:14 | disposition home or self-care (01) ==
LOC: M.ERS 12:51
DX: R05.9 Cough, unspecified (principal); Z20.822 Contact with and (suspected) exposure to COVID-19; R19.7 Diarrhea, unspecified; R43.8 Other disturbances of smell and taste; R11.0 Nausea; F17.210 Nicotine dependence, cigarettes, uncomplicated; Z90.89 Acquired absence of other organs; Z98.890 Other specified postprocedural states; Z79.899 Other long term (current) drug therapy; Z88.2 Allergy status to sulfonamides